=== PATIENT | female | born 1945 | race African-American/Black ===

== ENCOUNTER 2025-04-16 14:35 | Outpatient (CLI) | payer BC ==
[~2025-04-16 14:35] MED LIST: ATOR40TA PO; BENA1TAB14 PO; LEVO75TA57 PO; METF500T PO; SITA25TA3 PO
[2025-04-16 15:00] LABS: MEAN PLATELET VOLUME 7.3 FL (7.4-10.4); RED CELL DISTRIBUTION WIDTH 15.0 % (11.5-14.5)
[2025-04-16 15:22] LABS: CHOL/HDL RATIO 4.2 (0.00-4.99); CREATININE 1.33 MG/DL (0.40-0.90); LDL CHOLESTEROL 245 MG/DL (50-100); TOTAL CARBON DIOXIDE 33.6 MMOL/L (24-32); eGFR 47 ML/MIN
== END 2025-04-16 23:59 | disposition home or self-care (01) ==
LOC: LAB 14:35
PROVIDERS: ATTEND Student in an Organized Health Care Education/Training Program
DX: G31.84 Mild cognitive impairment of uncertain or unknown etiology (principal); Z13.220 Encounter for screening for lipoid disorders; Z13.1 Encounter for screening for diabetes mellitus
CPT/HCPCS: 36415; 80053; 80061; 82607; 82746; 83036; 84436; 84443; 85025